=== PATIENT | female | born 1960 | race Native Hawaiian/Other Pacific Islander ===

== ENCOUNTER 2020-01-18 20:53 | Emergency (ER) | payer OTHER ==
[~2020-01-18] VITALS: Ht 160 cm; Wt 77.1 kg
[2020-01-18 22:41] VITALS: BP 148/82; TEMP 98.4
[2020-01-18 22:43] LABS: PLATELET COUNT 246 K/uL (152-353)
[2020-01-18 22:58] LABS: POTASSIUM 4.1 mmol/L (3.6-5.2)
== END 2020-01-18 22:41 | disposition home or self-care (01) ==
LOC: ED 20:53
PROVIDERS: Hospitalist
DX: S86.812A Strain of other muscle(s) and tendon(s) at lower leg level, left leg, initial encounter (principal); S16.1XXA Strain of muscle, fascia and tendon at neck level, initial encounter; R07.89 Other chest pain; V50.0XXA Driver of pick-up truck or van injured in collision with pedestrian or animal in nontraffic accident, initial encounter; Y92.89 Other specified places as the place of occurrence of the external cause
CPT/HCPCS: 80048; 80320; 85027; 96374; 99284; J1885; Q9963

== ENCOUNTER 2020-01-24 17:49 | Emergency (ER) | payer OTHER ==
[~2020-01-24] VITALS: Ht 160 cm; Wt 77.1 kg
[2020-01-24 18:59] LABS: POTASSIUM 3.9 mmol/L (3.6-5.2)
[2020-01-24 19:06] LABS: PLATELET COUNT 195 K/uL (152-353)
[2020-01-24 22:10] VITALS: BP 155/72; TEMP 98.5
== END 2020-01-24 22:11 | disposition home or self-care (01) ==
LOC: ED 17:49
PROVIDERS: Family Medicine
DX: R19.09 Other intra-abdominal and pelvic swelling, mass and lump (principal); C22.9 Malignant neoplasm of liver, not specified as primary or secondary
CPT/HCPCS: 36415; 80053; 81000; 85027; 99283; Q9963

== ENCOUNTER 2020-01-28 08:29 | Outpatient (CLI) | payer OTHER ==
[2020-01-28 09:43] LABS: POTASSIUM 4.1 mmol/L (3.6-5.2)
[2020-01-28 09:54] LABS: PLATELET COUNT 250 K/uL (152-353)
== END 2020-01-28 21:31 | disposition home or self-care (01) ==
LOC: LABW 08:29 → US 08:29
PROVIDERS: Internal Medicine
DX: R16.0 Hepatomegaly, not elsewhere classified (principal); D64.9 Anemia, unspecified; E11.9 Type 2 diabetes mellitus without complications; I10 Essential (primary) hypertension; E03.9 Hypothyroidism, unspecified; E78.5 Hyperlipidemia, unspecified; R18.8 Other ascites; K80.20 Calculus of gallbladder without cholecystitis without obstruction
CPT/HCPCS: 36415; 80053; 80061; 80074; 81000; 82043; 82105; 82140; 82378; 82570; 83036; 84439; 84443; 85027; 86304; 86316

== ENCOUNTER 2020-03-30 07:42 | Emergency (ER) | payer OTHER ==
[~2020-03-30] VITALS: Ht 160 cm; Wt 77.1 kg
[2020-03-30 07:51] VITALS: TEMP 98.4
[2020-03-30 08:47] LABS: PLATELET COUNT 183 K/uL (152-353)
[2020-03-30] MEDS ORDERED: HYDR25TA60 PO (09:40)
[2020-03-30] MEDS ORDERED: GLIP10TA55 PO (09:40)
[2020-03-30] MEDS ORDERED: ZESTRIL40 MG PO (09:40)
[2020-03-30] MEDS ORDERED: EUTHYROX75 MCG PO (09:41)
[2020-03-30] MEDS ORDERED: ONDA4TAB3 PO (09:41)
[2020-03-30 13:30] VITALS: BP 164/83
== END 2020-03-30 13:38 | disposition home or self-care (01) ==
LOC: ED 07:42
PROVIDERS: Family Medicine
DX: C22.8 Malignant neoplasm of liver, primary, unspecified as to type (principal); C79.9 Secondary malignant neoplasm of unspecified site; R18.8 Other ascites; R10.84 Generalized abdominal pain
CPT/HCPCS: 80053; 81000; 85027; 96374; 96376; 99284; J2405; Q9963

== ENCOUNTER 2020-06-17 11:26 | Emergency (ER) | payer OTHER ==
[~2020-06-17] VITALS: Ht 160 cm; Wt 77.1 kg
[~2020-06-17 11:26] MED LIST: EUTHYROX75 MCG PO; GLIP10TA55 PO; HYDR25TA60 PO; ONDA4TAB3 PO; ZESTRIL40 MG PO
[2020-06-17 11:40] VITALS: TEMP 98.4
[2020-06-17 12:46] LABS: SODIUM 123 mmol/L (136-145)
[2020-06-17 12:51] LABS: PARTIAL THROMBOPLASTIN TIME 30.4 SECONDS (24.5-33.6)
[2020-06-17 12:59] LABS: PLATELET COUNT 33 K/uL (152-353)
[2020-06-17 13:40] VITALS: BP 110/70
== END 2020-06-17 14:17 | disposition home or self-care (01) ==
LOC: ED 11:26
PROVIDERS: Hospitalist
DX: R18.8 Other ascites (principal); C24.9 Malignant neoplasm of biliary tract, unspecified; Z98.890 Other specified postprocedural states
CPT/HCPCS: 80053; 82140; 82550; 83880; 84484; 85027; 85610; 85730; 93005; 96374; 96375; 99284; J1642; J1940; J2270; J2405